=== PATIENT | female | born 1990 | race Caucasian/White ===

== ENCOUNTER 2016-06-26 08:38 | Emergency (ER) | payer MEDICAID, OTHER ==
[~2016-06-26] VITALS: Ht 162.6 cm; Wt 57.0 kg
[~2016-06-26 08:38] MED LIST: POLY10O LEFT EYE
[2016-06-26 08:40] VITALS: BP 142/87; PULSE 84; RESP 16; TEMP 98.7; O2SAT 100
[2016-06-26] MEDS ORDERED: PENI500T PO (09:47)
--- NOTE | 2016-06-26 09:49 | PD ---
HPI Chief Complaint: ENT Complaint Time Seen by Provider: 09:16 Travel History International Travel<30 days: No Contact w/Intl Traveler<30days: No Traveled to known affect area: No History of Present Illness HPI She complains of sore throat. She also has swollen glands. She does not have runny nose or congestion or cough. Symptoms severity is moderate. Duration 3 days PFSH Past Medical History Cancer: No Cardiovascular Problems: No Diabetes: No Diminished Hearing: No Endocrine: No Genitourinary: Yes (KIDNEY STONE) Hepatitis: No Hiatal Hernia: No Immune Disorder: No Kidney Stones: Yes Musculoskeletal: No Neurologic: No Psychiatric: No Reproductive: No Respiratory: No Immunizations Current: Yes Thyroid Disease: No ?: Not LMP: May 22, 2016, IUD insitu : 3 Para: 2 : 1 Past Surgical History Abdominal Surgery: No AICD: No Cardiac Surgery: No Section: Yes Ear Surgery: No Endocrine Surgery: No Eye Surgery: No Genitourinary Surgery: Yes (RT KIDNEY STENT/LITHOTRIPSY) Gynecologic Surgery: Yes (C SECTIONS X2) Joint Replacement: No Oral Surgery: No Pacemaker: No Thoracic Surgery: No Other Surgery: Yes Social History Alcohol Use: No Tobacco Use: Yes (4 CIGS PER DAY) Substance Use: Yes (marijuana) Allergies-Medications (Allergen,Severity, Reaction): Coded Allergies: No Known Allergies (Verified , 01/16/16) Reported Meds & Prescriptions Reported Meds & Active Scripts Active No Active Prescriptions or Reported Medications Review of Systems General / Constitutional: No: Fever Eyes: No: Drainage HENT: Positive: Sore Throat Physical Exam Narrative NECK: Symmetrical appearance, midline trachea. No mass or crepitus. Thyroid without enlargement, tenderness, or mass. Has prominent submandibular lymphadenopathy that is tender SKIN: Focused skin assessment reveals no rash or ulcers. Skin is warm and dry. Palpation shows no induration or nodules. TMs normal Throat: Erythematous throughout but no exudate. Uvula midline Psych: Normal mood and affect. Normal insight and judgment. Data Data Last Documented VS Vital Signs Date Time Temp Pulse Resp B/P Pulse Ox O2 Delivery O2 Flow Rate FiO2 06/26/16 09:12 15 06/26/16 08:40 98.7 84 142/87 100 Room Air MDM Medical Decision Making Medical Screen Exam Complete: Yes Emergency Medical Condition: Yes Medical Record Reviewed: Yes Differential Diagnosis Pharyngitis, URI, sinusitis Narrative Course I have reviewed the patient's electronic medical record. Frequent visitor to the ER for minor complaints Presentation seems most consistent with an acute strep pharyngitis. 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 Exam of the throat is consistent with that and she lacks viral symptoms. One week of penicillin prescribed Gradual resolution is expected Diagnosis Primary Impression: Pharyngitis, acute Qualified Code: J02.9 - Acute pharyngitis, unspecified etiology Additional Instructions: The patient was advised to follow up with their physician and return if they worsen. Med/Other Pt SpecificInfo: Prescription(s) given Scripts Penicillin V Potassium 500 Mg [id number] Mg PO Q6H #28 TAB Ref 0 Prov:Jatinder Johnson MD 06/26/16 Disposition: 01 DISCHARGE HOME Condition: Stable Jatinder Johnson MD Jun 26, 2016 09:49
[2016-06-27] MEDS ORDERED: CIPR250T52 PO (10:56)
[2016-06-27] MEDS ORDERED: ACET500T36 PO (10:57)
== END 2016-06-26 10:04 | disposition home or self-care (01) ==
LOC: NEPD 08:38
DX: J02.9 Acute pharyngitis, unspecified (principal); Z72.0 Tobacco use; F17.210 Nicotine dependence, cigarettes, uncomplicated
CPT/HCPCS: 99283

== ENCOUNTER 2016-06-27 07:59 | Emergency (ER) | payer MEDICAID, OTHER ==
[~2016-06-27 07:59] MED LIST changes: +PENI500T PO; -POLY10O LEFT EYE
[2016-06-27 08:00] VITALS: BP 123/95; PULSE 61; RESP 18; TEMP 98.2; O2SAT 99
[2016-06-27 08:26] VITALS: RESP 17; O2SAT 99
[2016-06-27] MEDS ORDERED: SODIUM CHLORIDE 0.9% FLUSH 10 ML FLUSH IV FLUSH PRN (08:30)
[2016-06-27] MEDS ORDERED: KETOROLAC TROMETHAMINE 30 MG/ML (IVP) VIAL IV PUSH ONE (08:30)
--- NOTE | 2016-06-27 08:33 | PD ---
HPI Chief Complaint: Abdominal Pain Time Seen by Provider: 08:08 Travel History International Travel<30 days: No Contact w/Intl Traveler<30days: No Traveled to known affect area: No History of Present Illness HPI 26yo F with PMH of nephrolithiasis s/p lithotripsy presents to the ED with c/o right sided right lower back pain that radiates to right abdomen that started today. States the pain is sharp, waxes and wanes in intensity. States it is not as bad as when she had kidney stones. Denies any fever, n/v, chest pain, sob, vaginal discharge. Pt denies dysuria but feels pressure after urinating. Had nonbloody diarrhea today. PSH includes . Pt has IUD. Pt was here yesterday for pharyngitis. PFSH Past Medical History Cancer: No Cardiovascular Problems: No Diabetes: No Diminished Hearing: No Endocrine: No Genitourinary: Yes (KIDNEY STONE) Hepatitis: No Hiatal Hernia: No Immune Disorder: No Kidney Stones: Yes Musculoskeletal: No Neurologic: No Psychiatric: No Reproductive: No Respiratory: No Immunizations Current: Yes Thyroid Disease: No ?: Not LMP: 06/06/16 : 3 Para: 2 : 1 Past Surgical History Abdominal Surgery: No AICD: No Cardiac Surgery: No Section: Yes Ear Surgery: No Endocrine Surgery: No Eye Surgery: No Genitourinary Surgery: Yes (RT KIDNEY STENT/LITHOTRIPSY) Gynecologic Surgery: Yes (C SECTIONS X2) Joint Replacement: No Oral Surgery: No Pacemaker: No Thoracic Surgery: No Other Surgery: Yes Social History Alcohol Use: No Tobacco Use: Yes (4 CIGS PER DAY) Substance Use: Yes (marijuana) Allergies-Medications (Allergen,Severity, Reaction): Coded Allergies: No Known Allergies (Verified , 06/27/16) Reported Meds & Prescriptions Reported Meds & Active Scripts Active Penicillin V Potassium 500 Mg Tab 500 Mg PO Q6H Review of Systems Except as stated in HPI: all other systems reviewed are Neg Physical Exam Narrative GENERAL: 26yo F in moderate distress. SKIN: Focused skin assessment warm/dry. HEAD: Atraumatic. Normocephalic. EYES: Pupils equal and round. No scleral icterus. No injection or drainage. ENT: No nasal bleeding or discharge. Mucous membranes pink and moist. NECK: Trachea midline. No JVD. CARDIOVASCULAR: Regular rate and rhythm. No murmur appreciated. RESPIRATORY: No accessory muscle use. Clear to auscultation. Breath sounds equal bilaterally. GASTROINTESTINAL: Abdomen soft, +TTP epigastric, RUQ, RLQ and right flank. + TTP suprapubic region. No rebound tenderness or guarding. BACK: No CVA tenderness but mild ttp right paraspinal L4-L5. No midline ttp. MUSCULOSKELETAL: No obvious deformities. No clubbing. No cyanosis. No edema. NEUROLOGICAL: Awake and alert. No obvious cranial nerve deficits. Motor grossly within normal limits. Normal speech. PSYCHIATRIC: Appropriate mood and affect; insight and judgment normal. Data Data Last Documented VS Vital Signs Date Time Temp Pulse Resp B/P Pulse Ox O2 Delivery O2 Flow Rate FiO2 06/27/16 09:30 64 16 126/66 99 Room Air 06/27/16 08:00 98.2 Orders Complete Blood Count With Diff (06/27/16 08:22) Comprehensive Metabolic Panel (06/27/16 08:22) Lipase (06/27/16 08:22) Prothrombin Time / Inr (Pt) (06/27/16 08:22) Act Partial Throm Time (Ptt) (06/27/16 08:22) Urinalysis - C+S If Indicated (06/27/16 08:22) Ct Abd/Pel W Iv Contrast(Rout) (06/27/16 08:22) Iv Access Insert/Monitor (06/27/16 08:22) Ecg Monitoring (06/27/16 08:22) Oximetry (06/27/16 08:22) Sodium Chloride 0.9% Flush (Ns Flush) (06/27/16 08:30) Ed Urine Pregnancytest Poc (06/27/16 08:22) Ketorolac Inj (Toradol Inj) (06/27/16 08:30) Iohexol 350 Inj (Omnipaque 350 Inj) (06/27/16 09:04) Urine Culture (06/27/16 08:30) Labs Laboratory Tests Test 06/27/16 08:30 White Blood Count 7.4 TH/MM3 Red Blood Count 4.77 MIL/MM3 Hemoglobin 13.4 GM/DL Hematocrit 38.4 % Mean Corpuscular Volume 80.6 FL Mean Corpuscular Hemoglobin 28.1 PG Mean Corpuscular Hemoglobin 34.9 % Concent Red Cell Distribution Width 13.1 % Platelet Count 245 TH/MM3 Mean Platelet Volume 8.8 FL Neutrophils (%) (Auto) 70.7 % Lymphocytes (%) (Auto) 18.7 % Monocytes (%) (Auto) 8.8 % Eosinophils (%) (Auto) 1.2 % Basophils (%) (Auto) 0.6 % Neutrophils # (Auto) 5.2 TH/MM3 Lymphocytes # (Auto) 1.4 TH/MM3 Monocytes # (Auto) 0.7 TH/MM3 Eosinophils # (Auto) 0.1 TH/MM3 Basophils # (Auto) 0.0 TH/MM3 CBC Comment DIFF FINAL Differential Comment Prothrombin Time 10.5 SEC Prothromb Time International 1.0 RATIO Ratio Activated Partial 31.6 SEC Thromboplast Time Urine Color BROWN Urine Turbidity TURBID Urine pH 6.0 Urine Specific [place] 1.031 Urine Protein 30 mg/dL Urine Glucose (UA) NEG mg/dL Urine Ketones 10 mg/dL Urine Occult Blood SMALL Urine Nitrite NEG Urine Bilirubin NEG Urine Urobilinogen 2.0 MG/DL Urine Leukocyte Esterase MOD Urine RBC 50 /hpf Urine WBC /hpf Urine WBC Clumps FEW Urine Amorphous Sediment SMALL Urine Mucus MANY /lpf Microscopic Urinalysis Comment CULTURE INDICATED Sodium Level 138 MEQ/L Potassium Level 3.4 MEQ/L Chloride Level 104 MEQ/L Carbon Dioxide Level 23.5 MEQ/L Anion Gap 11 MEQ/L Blood Urea Nitrogen 12 MG/DL Creatinine 0.84 MG/DL Estimat Glomerular Filtration 81 ML/MIN Rate Random Glucose 89 MG/DL Calcium Level 9.5 MG/DL Total Bilirubin 0.4 MG/DL Aspartate Amino Transf 17 U/L (AST/SGOT) Alanine Aminotransferase 19 U/L (ALT/SGPT) Alkaline Phosphatase 58 U/L Total Protein 8.4 GM/DL Albumin 4.0 GM/DL Lipase 97 U/L [facility] Medical Decision Making Medical Screen Exam Complete: Yes Emergency Medical Condition: Yes Differential Diagnosis Nephrolithiasis vs. appendicitis vs. colitis vs. pyelonephritis Narrative Course 26yo F with nephrolithiasis here with right sided pain. Labs reviewed, no leukocytosis. K: 3.4, pt is tolerating PO. Lipase normal. Normal LFTs. Creatinine normal. UA showed moderate leukocyte. RBC 50. Likely secondary to nephrolithiasis. Urine negative. CTa/p showed minimal free fluid within cul de sac. No acute obstructive uropathy. Scattered bilateral tiny renal cysts. Pt given toradol 30mg IV and pain has resolved. Pt reevaluated at bedside and states abdominal and back pain has resolved. Pt is well appearing and tolerating PO. Will give antibiotics to cover UTI. Return precautions given. Diagnosis Primary Impression: UTI (urinary tract infection) Qualified Code: N39.0 - Urinary tract infection with hematuria, site unspecified Patient Instructions: General Instructions Departure Forms: Tests/Procedures Additional Instructions: Please follow up with primary care as outpatient. Return to the ED if symptoms worsen. Med/Other Pt SpecificInfo: Prescription(s) given Scripts Acetaminophen (Acetaminophen Extra Strength)500 Mg Nan083 Mg PO Q6H PRN (PAIN SCALE 1 TO 4) #20 TAB Ref 0 Prov:Skye Ling DO 06/27/16 Ciprofloxacin (Cipro)250 Mg [id number] Mg PO BID 3 Days Ref 0 Prov:Skye Ling DO 06/27/16 Skye Ling DO Jun 27, 2016 08:32
[2016-06-27] MEDS ORDERED: IOHEXOL 350 MG/ML 10 ML VIAL (for RAD DIAG) IV ONE (09:04)
[2016-06-27 09:12] LABS: AUTOMATED NEUTROPHIL # 5.2 TH/MM3 (1.8-7.7); BASOPHIL % 0.6 % (0.0-2.0); EOSINOPHIL # 0.1 TH/MM3 (0-0.4); EOSINOPHIL % 1.2 % (0.0-4.0); HEMATOCRIT 38.4 % (35.0-46.0); HEMO FLAGS DIFF FINAL; LYMPH % 18.7 % (9.0-44.0); LYMPHOCYTE # 1.4 TH/MM3 (1.0-4.8); MEAN CELL VOLUME 80.6 FL (80.0-100.0); MEAN CORPUSCULAR HEMOGLOBIN 28.1 PG (27.0-34.0); MEAN CORPUSCULAR HGB CONC 34.9 % (32.0-36.0); MONO % 8.8 % (0.0-8.0); NEUT % 70.7 % (16.0-70.0); PLATELET COUNT 245 TH/MM3 (150-450); RED BLOOD COUNT 4.77 MIL/MM3 (4.00-5.30); RED CELL DISTRIBUTION WIDTH 13.1 % (11.6-17.2); WHITE BLOOD COUNT 7.4 TH/MM3 (4.0-11.0)
[2016-06-27 09:24] LABS: APTT (PATIENT) 31.6 SEC (24.3-30.1); PROTHROMBIN TIME - PATIENT 10.5 SEC (9.8-11.6)
[2016-06-27 09:30] VITALS: BP 126/66; PULSE 64; RESP 16; O2SAT 99
--- NOTE | 2016-06-27 09:31 | RADRPT ---
EXAM DATE/TIME: 06/27/2016 08:53 [facility] COMPARISON: CT ABDOMEN & PELVIS W/O CONTRAST, November 20, 2014, 8:02. INDICATIONS : Right side abdominal pain. IV CONTRAST: 97 cc Omnipaque 350 (iohexol) IV ORAL CONTRAST: No oral contrast ingested. RADIATION DOSE: 9.96 CTDIvol (mGy) MEDICAL HISTORY : Renal calculi. SURGICAL HISTORY : None. ENCOUNTER: Initial ACUITY: 1 day PAIN SCALE: 5/10 LOCATION: Right abdomen TECHNIQUE: Volumetric scanning of the abdomen and pelvis was performed. Using automated exposure control and ad justment of the mA and/or kV according to patient size, radiation dose was kept as low as reasonably achievable to obtain optimal diagnostic quality images. FINDINGS: there is no acute obstructive uropathy. There is evidence of scattered tiny renal cysts bilaterally with the largest on the left measuring 9 mm. The liver, spleen, pancreas, gallbladder and adrenal gl ands are unremarkable. The abdominal aorta and superior vena cava are unremarkable. There is no per iaortic hemorrhage. No mesenteric lymphadenopathy. No ascites is noted. An intrauterine device is a gain noted and appears to be located in the lower uterine segment but unchanged in position compared to the previous examination in November,. There is minimal free fluid within the cul-de-sac. No bowel obstruction is noted. The visualized lung bases are clear. The bony structures are unremar kable. CONCLUSION: 1. Minimal free fluid within the cul-de-sac. 2. No acute obstructive uropathy. 3. Scattered tiny bilateral renal cysts. Dagoberto Downing MD on June 27, 2016 at 9:11 Board Certified Radiologist. This report was verified electronically.
[2016-06-27 09:39] LABS: BLOOD, URINE SMALL (NEG); COMMENT (UR) CULTURE INDICATED; CULTURE IF INDICATED CULTURE INDICATED; GLUCOSE,URINE NEG (NEG); KETONE, URINE 10 mg/dL (NEG); MUCUS URINE MANY /lpf (OCC); NITRITE,URINE NEG (NEG)
[2016-06-27 09:41] LABS: ANION GAP 11 MEQ/L (5-15); AST (GOT) 17 U/L (15-37); BICARBONATE 23.5 MEQ/L (21.0-32.0); BLOOD UREA NITROGEN 12 MG/DL (7-18); CHLORIDE 104 MEQ/L (98-107); GLOMERULAR FILTRATION RATE 81 ML/MIN (>89); POTASSIUM 3.4 MEQ/L (3.5-5.1); SODIUM (NA) 138 MEQ/L (136-145)
[2016-06-27 09:43] LABS: URINE COLOR BROWN (YELLW/STRAW)
[2016-06-27 09:45] LABS: ALKALINE PHOSPHATASE 58 U/L (45-117); ALT (GPT) 19 U/L (10-53); TOTAL BILIRUBIN ADULT 0.4 MG/DL (0.2-1.0)
[2016-06-27] MEDS ORDERED: CIPR250T52 PO (10:56)
[2016-06-27] MEDS ORDERED: ACET500T36 PO (10:57)
[2016-06-27 11:02] VITALS: BP 130/77; TEMP 97.8
== END 2016-06-27 11:02 | disposition home or self-care (01) ==
LOC: NEPC 07:59
DX: N39.0 Urinary tract infection, site not specified (principal); Z72.0 Tobacco use; F12.90 Cannabis use, unspecified, uncomplicated; B96.89 Other specified bacterial agents as the cause of diseases classified elsewhere
CPT/HCPCS: 74177; 80053; 81001; 83690; 84703; 85025; 85610; 85730; 87086; 96374; 99284; J1885; Q9967

== ENCOUNTER 2016-06-28 01:22 | Inpatient (IN) | payer MEDICAID, OTHER ==
[2016-06-28] VITALS (10 sets, daily range): BP systolic 100–117; BP diastolic 56–81; PULSE 75–101; RESP 18–22; TEMP 98.9–101.9; O2SAT 97–100
[~2016-06-28] VITALS: Ht 172.7 cm; Wt 57.0 kg
[~2016-06-28 01:22] MED LIST changes: +ACET500T36 PO; +CIPR250T52 PO; +POLY10O LEFT EYE
[2016-06-28] MEDS ORDERED: SODIUM CHLOR 0.9% 1000 ML INJ 1,000 ML IV SCH ×2 (01:40)
[2016-06-28] MEDS ORDERED: MORPHINE SULFATE 4 MG/ML INJ IV PUSH ONE (01:45)
[2016-06-28] MEDS ORDERED: ONDANSETRON HCL 4 MG/2 ML VIAL IVP ONE (01:45)
[2016-06-28] MEDS ORDERED: PANTOPRAZOLE SODIUM 40 MG VIAL IVP ONE (01:45)
--- NOTE | 2016-06-28 01:46 | PD ---
HPI Chief Complaint: GI Complaint Time Seen by Provider: 01:32 Travel History International Travel<30 days: No Contact w/Intl Traveler<30days: No Traveled to known affect area: No History of Present Illness HPI 26-year-old female complains of right flank pain, low abdominal pain and nausea vomiting. Patient was seen in emergency room yesterday with diagnosis of UTI. Patient was given prescription for Cipro. Patient states that she has increased abdominal pain, right flank pain today. Patient states that she started her menstruation. This morning also. Patient states that she has intermittent fever chills at home. Patient states that she has urinary frequency but no dysuria. Patient states that the pain cramping pain and sharp pain severe pain localized to lower abdomen the right flank area. Patient denies any pain radiation. On a scale of 1-10 the pain is a 10. PFSH Past Medical History Cancer: No Cardiovascular Problems: No Diabetes: No Diminished Hearing: No Endocrine: No Gastrointestinal Disorders: No Genitourinary: Yes (KIDNEY STONE) Hepatitis: No Hiatal Hernia: No Hypertension: No Immune Disorder: No Kidney Stones: Yes Musculoskeletal: No Neurologic: No Psychiatric: No Reproductive: No Respiratory: No Immunizations Current: Yes Thyroid Disease: No ?: Not LMP: 06/28/16 : 3 Para: 2 : 1 Past Surgical History Abdominal Surgery: No AICD: No Cardiac Surgery: No Section: Yes Ear Surgery: No Endocrine Surgery: No Eye Surgery: No Genitourinary Surgery: Yes (RT KIDNEY STENT/LITHOTRIPSY) Gynecologic Surgery: Yes (C SECTIONS X2) Joint Replacement: No Neurologic Surgery: No Oral Surgery: No Pacemaker: No Thoracic Surgery: No Other Surgery: Yes Social History Alcohol Use: No Tobacco Use: Yes (4 CIGS PER DAY) Substance Use: Yes (marijuana) Allergies-Medications (Allergen,Severity, Reaction): Coded Allergies: No Known Allergies (Verified , 06/28/16) Reported Meds & Prescriptions Reported Meds & Active Scripts Active Acetaminophen Extra Strength (Acetaminophen) 500 Mg Tab 500 Mg PO Q6H PRN Cipro (Ciprofloxacin HCl) 250 Mg Tab 250 Mg PO BID 3 Days Penicillin V Potassium 500 Mg Tab 500 Mg PO Q6H Review of Systems General / Constitutional: Positive: Fever, Chills Eyes: No: Visual changes HENT: No: Headaches Cardiovascular: No: Chest Pain or Discomfort Respiratory: No: Shortness of Breath Gastrointestinal: Positive: Abdominal Pain Genitourinary: Positive: Frequency, No: Dysuria Musculoskeletal: No: Pain Skin: No Rash Neurologic: No: Weakness Psychiatric: No: Depression Endocrine: No: Polydipsia Hematologic/Lymphatic: No: Easy Bruising Physical Exam Narrative GENERAL: Well-nourished, well-developed patient. SKIN: Focused skin assessment warm/dry. HEAD: Normocephalic. EYES: No scleral icterus. No injection or drainage. NECK: Supple, trachea midline. No JVD or lymphadenopathy. CARDIOVASCULAR: Regular rate and rhythm without murmurs, gallops, or rubs. RESPIRATORY: Breath sounds equal bilaterally. No accessory muscle use. GASTROINTESTINAL: Abdomen soft, nondistended. Patient has moderate tenderness on palpation lower abdomen. No rebound tenderness. No mass. MUSCULOSKELETAL: No cyanosis, or edema. BACK: Patient has positive right CVA tenderness. Neurologic exam normal. Data Data Last Documented VS Vital Signs Date Time Temp Pulse Resp B/P Pulse Ox O2 Delivery O2 Flow Rate FiO2 06/28/16 01:24 100.0 88 18 116/81 99 Room Air Orders Beta Hcg (Quant/Titer) (06/28/16 01:40) Complete Blood Count With Diff (06/28/16 01:40) Comprehensive Metabolic Panel (06/28/16 01:40) Lipase (06/28/16 01:40) Prothrombin Time / Inr (Pt) (06/28/16 01:40) Act Partial Throm Time (Ptt) (06/28/16 01:40) Urinalysis - C+S If Indicated (06/28/16 01:40) Iv Access Insert/Monitor (06/28/16 01:40) Ecg Monitoring (06/28/16 01:40) Oximetry (06/28/16 01:40) Morphine Inj (Morphine Inj) (06/28/16 01:45) Ondansetron Inj (Zofran Inj) (06/28/16 01:45) Pantoprazole Inj (Protonix Inj) (06/28/16 01:45) Sodium Chlor 0.9% 1000 Ml Inj (Ns 1000 M (06/28/16 01:40) Sodium Chlor 0.9% 1000 Ml Inj (Ns 1000 M (06/28/16 01:40) Blood Culture (06/28/16 01:40) Ceftriaxone Inj (Rocephin Inj) (06/28/16 02:00) Metoclopramide Inj (Reglan Inj) (06/28/16 02:45) Diphenhydramine Inj (Benadryl Inj) (06/28/16 02:45) Urine Culture (06/28/16 02:25) Labs Laboratory Tests Test 06/28/16 02:25 White Blood Count 17.7 TH/MM3 Red Blood Count 4.79 MIL/MM3 Hemoglobin 13.3 GM/DL Hematocrit 38.6 % Mean Corpuscular Volume 80.7 FL Mean Corpuscular Hemoglobin 27.8 PG Mean Corpuscular Hemoglobin 34.5 % Concent Red Cell Distribution Width 12.9 % Platelet Count 247 TH/MM3 Mean Platelet Volume 9.0 FL Neutrophils (%) (Auto) 85.2 % Lymphocytes (%) (Auto) 8.5 % Monocytes (%) (Auto) 5.9 % Eosinophils (%) (Auto) 0.2 % Basophils (%) (Auto) 0.2 % Neutrophils # (Auto) 15.1 TH/MM3 Lymphocytes # (Auto) 1.5 TH/MM3 Monocytes # (Auto) 1.0 TH/MM3 Eosinophils # (Auto) 0.0 TH/MM3 Basophils # (Auto) 0.0 TH/MM3 CBC Comment DIFF FINAL Differential Comment Urine Color DARK-BROWN Urine Turbidity HAZY Urine pH 6.0 Urine Specific [place] 1.042 Urine Protein 100 mg/dL Urine Glucose (UA) NEG mg/dL Urine Ketones 150 mg/dL Urine Occult Blood MOD Urine Nitrite NEG Urine Bilirubin NEG Urine Urobilinogen 2.0 MG/DL Urine Leukocyte Esterase LARGE Urine RBC /hpf Urine WBC /hpf Urine Squamous Epithelial 4 /hpf Cells Urine Mucus MANY /lpf Microscopic Urinalysis Comment CULTURE INDICATED Sodium Level 136 MEQ/L Potassium Level 3.1 MEQ/L Chloride Level 102 MEQ/L Carbon Dioxide Level 21.0 MEQ/L Anion Gap 13 MEQ/L Blood Urea Nitrogen 12 MG/DL Creatinine 0.88 MG/DL Estimat Glomerular Filtration 77 ML/MIN Rate Random Glucose 120 MG/DL Calcium Level 9.4 MG/DL Aspartate Amino Transf 16 U/L (AST/SGOT) Alanine Aminotransferase 16 U/L (ALT/SGPT) Albumin 4.4 GM/DL Lipase 63 U/L [facility] Medical Decision Making Medical Screen Exam Complete: Yes Emergency Medical Condition: Yes Interpretation(s) 3:28 AM. CBC WBC 17.7. 85 neutrophil. Potassium 3.1. UA positive for WBC, RBC and bacteria. Differential Diagnosis Differential diagnosis including pyelonephritis, nephrolithiasis, gastroenteritis, dysmenorrhea, PID, ectopic , threatened AB. Narrative Course 26-year-old female with low abdominal pain and right flank pain, nausea vomiting. Patient was seen here yesterday for UTI. Normal saline solution 1 L IV bolus. Morphine 2 mg IV. Zofran 4 mg IV. Rocephin 1 g IV. Reglan 10 mg IV. Benadryl 50 mg IV. Diagnosis Primary Impression: Pyelonephritis Additional Impressions: Persistent vomiting Failure of outpatient treatment Admitting Information Admitting Physician Requests: Admit Arturo Hdz MD Jun 28, 2016 01:46
[2016-06-28] MEDS ORDERED: cefTRIAXone INJ 1,000 MG in SODIUM CHLORIDE 0.9% INJ 100 ML IV ONE (02:00)
[2016-06-28] MEDS ORDERED: diphenhydrAMINE HCL 50 MG/ML VIAL IV PUSH ONE (02:45)
[2016-06-28] MEDS ORDERED: METOCLOPRAMIDE HCL 10 MG/2 ML VIAL IV PUSH ONE (02:45)
[2016-06-28 03:07] LABS: AUTOMATED NEUTROPHIL # 15.1 TH/MM3 (1.8-7.7); BASOPHIL % 0.2 % (0.0-2.0); EOSINOPHIL % 0.2 % (0.0-4.0); HEMATOCRIT 38.6 % (35.0-46.0); HEMO FLAGS DIFF FINAL; LYMPH % 8.5 % (9.0-44.0); LYMPHOCYTE # 1.5 TH/MM3 (1.0-4.8); MEAN CELL VOLUME 80.7 FL (80.0-100.0); MEAN CORPUSCULAR HEMOGLOBIN 27.8 PG (27.0-34.0); MEAN CORPUSCULAR HGB CONC 34.5 % (32.0-36.0); MONO % 5.9 % (0.0-8.0); NEUT % 85.2 % (16.0-70.0); PLATELET COUNT 247 TH/MM3 (150-450); RED BLOOD COUNT 4.79 MIL/MM3 (4.00-5.30); RED CELL DISTRIBUTION WIDTH 12.9 % (11.6-17.2); WHITE BLOOD COUNT 17.7 TH/MM3 (4.0-11.0)
[2016-06-28 03:08] LABS: BLOOD, URINE MOD (NEG); COMMENT (UR) CULTURE INDICATED; CULTURE IF INDICATED CULTURE INDICATED; GLUCOSE,URINE NEG (NEG); KETONE, URINE 150 mg/dL (NEG); MUCUS URINE MANY /lpf (OCC); NITRITE,URINE NEG (NEG); SQUAMOUS EPITHELIAL CELL URINE 4 /hpf (0-5); URINE COLOR DARK-BROWN (YELLW/STRAW)
[2016-06-28 03:25] LABS: ALT (GPT) 16 U/L (10-53); ANION GAP 13 MEQ/L (5-15); AST (GOT) 16 U/L (15-37); BLOOD UREA NITROGEN 12 MG/DL (7-18); CHLORIDE 102 MEQ/L (98-107); GLOMERULAR FILTRATION RATE 77 ML/MIN (>89); POTASSIUM 3.1 MEQ/L (3.5-5.1); SODIUM (NA) 136 MEQ/L (136-145)
[2016-06-28 03:28] LABS: APTT (PATIENT) 34.1 SEC (24.3-30.1); PROTHROMBIN TIME - PATIENT 11.4 SEC (9.8-11.6)
[2016-06-28 03:29] LABS: ALKALINE PHOSPHATASE 72 U/L (45-117); BETA HCG QUANT LESS THAN 1 MIU/ML (0-5)
[2016-06-28] MEDS ORDERED: BISACODYL 10 MG SUPP RECTAL PRN (03:45)
[2016-06-28] MEDS ORDERED: PROCHLORPERAZINE INJ 10 MG/2 ML VIAL IV PUSH PRN (03:45)
[2016-06-28] MEDS ORDERED: SODIUM CHLORIDE 0.9% FLUSH 10 ML FLUSH IV FLUSH PRN (03:45)
[2016-06-28] MEDS ORDERED: ACETAMINOPHEN 325 MG TAB PO PRN (03:45)
[2016-06-28] MEDS ORDERED: MORPHINE SULFATE 4 MG/ML INJ IV PRN ×2 (03:45→18:45)
[2016-06-28] MEDS ORDERED: POTASSIUM CHLOR 20 MEQ PREMIX 100 ML IV ONE (04:00)
--- NOTE | 2016-06-28 04:05 | HHI.HP ---
HPI Service [facility] Primary Care Physician No Primary Care Physician Admission Diagnosis pyelonephritis. Intractable vomiting. Failure of outpatient treatm Diagnoses: (1) Pyelonephritis Diagnosis: Principal (2) Failure of outpatient treatment Diagnosis: Principal (3) Dehydration Diagnosis: Principal (4) Hypokalemia Diagnosis: Principal (5) Intractable nausea and vomiting Diagnosis: Principal (6) Tobacco abuse Diagnosis: Principal Travel History International Travel<30 Days: No Contact w/Intl Traveler <30 Da: No Traveled to Known Affected Are: No History of Present Illness This is a 26-year-old female with PMH Nephrolithiasis s/p Stent/Lithotripsy of present ER with complaints of right-sided flank pain, nausea and vomiting x2 days. Seen in ER on 06/26/16 for c/o sore throat, diagnosed w/ Acute Pharyngitis and d/c'd w/ PCN 500mg po q6h. Presented to ER again on 06/27/16 w/ c/o right-sided flank pain and nausea/vomiting, found to have UTI and d/c'd w/ Cipro 250mg po bid x3 days. Reports ongoing nausea/vomiting, unable to take medications, also notes subjective fever/chills at home. On arrival, Temp 100.0. BP 116/81, HR 88, O2 sat 99% on RA. WBC 17.7, previously 7.4 on . K+ 3.1. GFR 77. U/a w/ worsening UTI. CT Abd/Pelvis 06/27/16 w/ minimal free fluid in cul-de-sac, no obstructive uropathy. S/p Blood/Urine Cultures, Rocephin IV in ER. Review of Systems Except as stated in HPI: all other systems reviewed are Neg ROS: 14 point review of systems otherwise negative. Past Family Social History Past Medical History PMH: Nephrolithiasis s/p Stent/Lithotripsy Past Surgical History PAST SURGICAL HISTORY: Allergies: Coded Allergies: No Known Allergies (Verified , 06/28/16) Family History PAST FAMILY HISTORY: Reviewed. No h/o DM or CAD Social History PAST SOCIAL HISTORY: Negative for alcohol. Smokes 4-5 cigarettes per day. + Marijuana. Physical Exam Vital Signs Vital Signs Date Time Temp Pulse Resp B/P Pulse Ox O2 Delivery O2 Flow Rate FiO2 06/28/16 03:48 83 18 112/56 98 Room Air 06/28/16 01:24 100.0 88 18 116/81 99 Room Air Physical Exam PE: GENERAL: Young female in no acute distress. HEENT: PERRLA, EOMI. No scleral icterus or conjunctival pallor. No lid lag or facial droop. CARDIOVASCULAR: Regular rate and rhythm. No obvious murmurs to auscultation. No chest tenderness to palpation. RESPIRATORY: No obvious rhonchi or wheezing. Clear to auscultation. Breath sounds equal bilaterally. GASTROINTESTINAL: Abdomen soft, +mild generalized tenderness to palpation, + right flank tenderness, nondistended. BS normal. MUSCULOSKELETAL: Extremities without clubbing, cyanosis, or edema. No obvious deformities. NEUROLOGICAL: Awake, alert and oriented x4. No focal neurologic deficits. Moving both upper and lower extremities spontaneously. Laboratory Laboratory Tests Test 06/28/16 02:25 White Blood Count 17.7 Red Blood Count 4.79 Hemoglobin 13.3 Hematocrit 38.6 Mean Corpuscular Volume 80.7 Mean Corpuscular Hemoglobin 27.8 Mean Corpuscular Hemoglobin 34.5 Concent Red Cell Distribution Width 12.9 Platelet Count 247 Mean Platelet Volume 9.0 Neutrophils (%) (Auto) 85.2 Lymphocytes (%) (Auto) 8.5 Monocytes (%) (Auto) 5.9 Eosinophils (%) (Auto) 0.2 Basophils (%) (Auto) 0.2 Neutrophils # (Auto) 15.1 Lymphocytes # (Auto) 1.5 Monocytes # (Auto) 1.0 Eosinophils # (Auto) 0.0 Basophils # (Auto) 0.0 CBC Comment DIFF FINAL Differential Comment Prothrombin Time 11.4 Prothromb Time International 1.0 Ratio Activated Partial 34.1 Thromboplast Time Urine Color DARK-BROWN Urine Turbidity HAZY Urine pH 6.0 Urine Specific [place] 1.042 Urine Protein 100 Urine Glucose (UA) NEG Urine Ketones 150 Urine Occult Blood MOD Urine Nitrite NEG Urine Bilirubin NEG Urine Urobilinogen 2.0 Urine Leukocyte Esterase LARGE Urine RBC Urine WBC Urine Squamous Epithelial 4 Cells Urine Mucus MANY Microscopic Urinalysis Comment CULTURE INDICATED Sodium Level 136 Potassium Level 3.1 Chloride Level 102 Carbon Dioxide Level 21.0 Anion Gap 13 Blood Urea Nitrogen 12 Creatinine 0.88 Estimat Glomerular Filtration 77 Rate Random Glucose 120 Calcium Level 9.4 Total Bilirubin 1.0 Aspartate Amino Transf 16 (AST/SGOT) Alanine Aminotransferase 16 (ALT/SGPT) Alkaline Phosphatase 72 Total Protein 9.0 Albumin 4.4 Lipase 63 Human Chorionic Gonadotropin, LESS THAN 1 Quant Date/Time Procedure Status Source Growth 06/28/16 02:30 Aerobic Blood Culture Received Blood Peripheral Pending 06/28/16 02:30 Anaerobic Blood Culture Received Blood Peripheral Pending 06/28/16 02:25 Urine Culture Received Urine Clean Catch Pending Result Diagram: 06/28/1622406/28/16224 Assessment and Plan Problem List: (1) Pyelonephritis ICD Code: N12 Status: Acute (2) Failure of outpatient treatment ICD Code: Z78.9 Status: Acute (3) Dehydration ICD Code: E86.0 Status: Acute (4) Hypokalemia ICD Code: E87.6 Status: Acute (5) Intractable nausea and vomiting ICD Code: R11.2 Status: Acute (6) Tobacco abuse ICD Code: Z72.0 Status: Acute Assessment and Plan A/P: 1. Pyelonephritis: right-sided flank pain, nausea/vomiting, presented to ER on 06/27/16, found to have UTI, CT Abd/Pelvis at that time w/ no acute findings, images reviewed by me. Persistent flank pain, U/a w/ worsening UTI, s/p Blood/ Urine Cultures and Rocephin IV in ER, will follow up cultures, continue IV Abx. Analgesics/antiemetics as needed. 2. Failure of Oupt Tx: seen in ER 06/27/16, prescribed Cipro 250mg bid x3 days , persistent/worsening UTI, continue w/ IV Abx. 3. Dehydration: GFR 77, BUN/Creatinine normal, will monitor, repeat labs in am , IVF. 4. Hypokalemia: K+ 3.1, replace and recheck. 5. Intractable Nausea/Vomiting: unable to tolerate PO, s/p Zofran, Reglan/ Benadryl in ER w/ eventual improvement. Will continue w/ antiemetics, diet as tolerated, IVF. 6. Tobacco Abuse: Pt counselled. Ativan/NicoDerm prn if needed. 7. DVT Prophylaxis: SCD/Teds. 8. Social work for DC planning as needed. 9. Case discussed at length with ER physician. Physician Certification 2 Midnight Certification Type: Admission for Inpatient Services Order for Inpatient Services The services are ordered in accordance with Medicare regulations or non- Medicare payer requirements, as applicable. In the case of services not specified as inpatient-only, they are appropriately provided as inpatient services in accordance with the 2-midnight benchmark. Estimated LOS (days): 2 days is the estimated time the patient will need to remain in the hospital, assuming treatment plan goals are met and no additional complications. Post-Hospital Plan: Not yet determined Daniela Garcia MD Jun 28, 2016 04:05
[2016-06-28] MEDS: SODIUM CHLOR 0.9% 1000 ML INJ 1,000 ML IV SCH ×2 (04:58→17:58)
[2016-06-28] MEDS: ACETAMINOPHEN/HYDROcodone 325 MG/5 MG TAB PO PRN ×3 (06:47→18:00)
[2016-06-28] MEDS: SODIUM CHLORIDE 0.9% FLUSH 10 ML FLUSH IV FLUSH SCH ×2 (08:11→20:42)
[2016-06-28] MEDS: ONDANSETRON HCL 4 MG/2 ML VIAL IVP PRN (14:28)
--- NOTE | 2016-06-28 16:23 | HHI.PR ---
Subjective Remarks "I have belly pain." Pt encountered laying abed. She reported pain extending from right flank, across her abdomen, stopping short of her left flank. Pt reported attempting to urinate and experienced "urethra pain." She said the pain reminded her of "when I had a kidney stone." Pt noted she experienced a brief period of nausea shortly after attempting to void. No other issues noted or reported. Objective Vitals Vital Signs Date Time Temp Pulse Resp B/P Pulse Ox O2 Delivery O2 Flow Rate FiO2 06/28/16 14:05 83 22 108/59 100 06/28/16 10:51 84 20 107/57 98 06/28/16 10:35 99.1 06/28/16 07:14 100.3 88 20 106/57 97 06/28/16 05:46 20 06/28/16 04:45 101.9 91 18 109/63 100 Room Air 06/28/16 03:48 83 18 112/56 98 Room Air 06/28/16 02:00 101 18 117/56 98 Room Air 06/28/16 01:24 100.0 88 18 116/81 99 Room Air I/O 06/27/16 06/27/16 06/27/16 06/28/16 06/28/16 06/28/16 07:00 15:00 23:00 07:00 15:00 23:00 Intake Total 500 ml Output Total 300 ml 100 ml Balance 200 ml -100 ml Intake Oral 200 ml IV Total 300 ml Output Urine Total 200 ml 100 ml Emesis 100 ml Bladder Scan Volume Amount 275 ml Result Diagram: 06/28/165 06/28/16224 Other Results Blood and urine cultures are pending. Imaging No imaging studies ordered within the past 24 hours. Objective Remarks GENERAL: SKIN: Warm and dry. HEAD: Normocephalic. EYES: No scleral icterus. No injection or drainage. NECK: Supple, trachea midline. No JVD or lymphadenopathy. CARDIOVASCULAR: Regular rate and rhythm without murmurs, gallops, or rubs. RESPIRATORY: Breath sounds equal bilaterally. No accessory muscle use. GASTROINTESTINAL: Abdomen soft, tender, nondistended with bowel sounds diminished in all quadrants. Pt did evidence right sided guarding during palpation. MUSCULOSKELETAL: No cyanosis, or edema. BACK: Nontender without obvious deformity. No CVA tenderness. Procedures None completed within the past 24 hours. Medications and IVs Current Medications Medications (Trade) Dose Ordered Sig/Claire Route Start Time Stop Time Status Last Admin Ceftriaxone Sodium 1000 mg/ Sodium Chloride 100 ml @ 200 mls/hr Q24H IV 06/29/16 06:00 (NS 1000 ml Inj) 1,000 ml @ 100 mls/hr Q10H IV 06/28/16 03:39 06/28/16 04:58 (NS Flush) 2 ml UNSCH PRN IV FLUSH 06/28/16 03:45 06/28/16 14:33 (NS Flush) 2 ml BID IV FLUSH 06/28/16 09:00 (Zofran Inj) 4 mg Q6H PRN IVP 06/28/16 03:45 06/28/16 14:28 (Dulcolax Supp) 10 mg DAILY PRN RECTAL 06/28/16 03:45 (Tylenol) 650 mg Q6H PRN PO 06/28/16 03:45 06/28/16 04:45 ([place] 5-325 Mg) 1 tab Q4H PRN PO 06/28/16 03:45 06/28/16 11:02 (Morphine Inj) 2 mg Q3H PRN IV 06/28/16 03:45 06/28/16 14:35 (Compazine Inj) 10 mg Q6H PRN IV PUSH 06/28/16 03:45 Urinary Catheter: No Vascular Central Line Catheter: No A/P Problem List: (1) Pyelonephritis ICD Code: N12 Status: Acute (2) Failure of outpatient treatment ICD Code: Z78.9 Status: Acute (3) Dehydration ICD Code: E86.0 Status: Acute (4) Hypokalemia ICD Code: E87.6 Status: Acute (5) Intractable nausea and vomiting ICD Code: R11.2 Status: Acute (6) Tobacco abuse ICD Code: Z72.0 Status: Acute Assessment and Plan Pyelonephritis -awaiting cultures -Antibiotics ongoing -treat pain or PRN basis. Failure of outpt treatment -Treating with Iv antibiotics. -Admitted to hospital. Dehydration -IV fluids ordered. -monitor status both clinically and with labs. Hypokalemia -Pt has received replacement potassium -labs to be checked in the morning Intractable Nausea and vomiting -Pt receiving antiemetics and is reporting improvement. -continue treatment. Tobacco abuse -admitting team has prescribed nicoderm and ativan as needed for withdrawal. DVT Prophylaxis: SCD/Teds. Elton Johns Jr. KAIT Jun 28, 2016 16:23
[2016-06-29 00:30] VITALS: BP 96/50; PULSE 78; RESP 20; TEMP 99.2; O2SAT 98
[2016-06-29 05:15] VITALS: BP 104/53; PULSE 81; RESP 20; TEMP 98.9; O2SAT 98
[2016-06-29] MEDS: cefTRIAXone INJ 1,000 MG in SODIUM CHLORIDE 0.9% INJ 100 ML IV SCH (06:08)
[2016-06-29] MEDS: SODIUM CHLOR 0.9% 1000 ML INJ 1,000 ML IV SCH ×3 (06:15→19:39)
[2016-06-29 06:40] LABS: AUTOMATED NEUTROPHIL # 12.1 TH/MM3 (1.8-7.7); BASOPHIL % 0.3 % (0.0-2.0); EOSINOPHIL # 0.1 TH/MM3 (0-0.4); EOSINOPHIL % 0.7 % (0.0-4.0); HEMATOCRIT 30.4 % (35.0-46.0); HEMO FLAGS DIFF FINAL; LYMPH % 6.7 % (9.0-44.0); LYMPHOCYTE # 0.9 TH/MM3 (1.0-4.8); MEAN CELL VOLUME 80.3 FL (80.0-100.0); MEAN CORPUSCULAR HEMOGLOBIN 28.5 PG (27.0-34.0); MEAN CORPUSCULAR HGB CONC 35.5 % (32.0-36.0); MONO % 5.1 % (0.0-8.0); NEUT % 87.2 % (16.0-70.0); PLATELET COUNT 210 TH/MM3 (150-450); RED BLOOD COUNT 3.79 MIL/MM3 (4.00-5.30); RED CELL DISTRIBUTION WIDTH 13.3 % (11.6-17.2); WHITE BLOOD COUNT 13.9 TH/MM3 (4.0-11.0)
[2016-06-29] MEDS: ONDANSETRON HCL 4 MG/2 ML VIAL IVP PRN (06:44)
[2016-06-29 07:26] LABS: ALKALINE PHOSPHATASE 67 U/L (45-117); ALT (GPT) 11 U/L (10-53); ANION GAP 8 MEQ/L (5-15); AST (GOT) 9 U/L (15-37); BICARBONATE 24.8 MEQ/L (21.0-32.0); BLOOD UREA NITROGEN 11 MG/DL (7-18); CHLORIDE 105 MEQ/L (98-107); GLOMERULAR FILTRATION RATE 103 ML/MIN (>89); MAGNESIUM 2.2 MG/DL (1.5-2.5); POTASSIUM 3.2 MEQ/L (3.5-5.1); SODIUM (NA) 138 MEQ/L (136-145); TOTAL BILIRUBIN ADULT 0.3 MG/DL (0.2-1.0)
[2016-06-29 08:21] VITALS: BP 104/58; PULSE 81; RESP 16; TEMP 99.4; O2SAT 99
[2016-06-29] MEDS: SODIUM CHLORIDE 0.9% FLUSH 10 ML FLUSH IV FLUSH SCH ×2 (08:34→21:00)
[2016-06-29] MEDS ORDERED: POTASSIUM CHLORIDE 20 MEQ CONTROLLED RELEASE TAB PO ONE (09:00)
--- NOTE | 2016-06-29 09:30 | HHI.PR ---
Subjective Remarks Follow-up for pyelonephritis. The patient is doing better today. She states that the pain is bearable today, and is trying not to use pain medicine. She locates the pain suprapubically, and a bit on the right flank. She had some nausea earlier, relieved with Zofran. No vomiting overnight. She wants to try to eat. She has been ambulating with no difficulties. She is asking about when she can go home. Objective Vitals Vital Signs Date Time Temp Pulse Resp B/P Pulse Ox O2 Delivery O2 Flow Rate FiO2 06/29/16 08:21 99.4 81 16 104/58 99 06/29/16 05:15 98.9 81 20 104/53 98 06/29/16 00:30 99.2 78 20 96/50 98 06/28/16 19:54 99.3 75 20 105/58 98 06/28/16 17:48 98.9 85 100/56 98 06/28/16 14:05 83 22 108/59 100 06/28/16 10:51 84 20 107/57 98 06/28/16 10:35 99.1 I/O 06/28/16 06/28/16 06/28/16 06/29/16 06/29/16 06/29/16 07:00 15:00 23:00 07:00 15:00 23:00 Intake Total 500 ml 812 ml Output Total 300 ml 205 ml Balance 200 ml 607 ml Intake Oral 200 ml 180 ml IV Total 300 ml 632 ml Output Urine Total 200 ml 205 ml Emesis 100 ml Bladder Scan Volume Amount 275 ml Result Diagram: 06/29/16 0615 06/29/16 0615 Objective Remarks GENERAL: Well-developed well-nourished. In no acute distress. SKIN: Warm and dry. No lesions noted. HEENT: Normocephalic. Pupils equal and round. Mucous membranes pink and moist. CARDIOVASCULAR: Regular rate and rhythm. No murmur appreciated. RESPIRATORY: No accessory muscle use. Clear to auscultation. Breath sounds equal bilaterally. GASTROINTESTINAL: Abdomen soft, mild suprapubic TTP, nondistended. Bowel sounds x4. Mild right CVA. MUSCULOSKELETAL: No obvious deformities. No clubbing or cyanosis. No edema. NEUROLOGICAL: Awake and alert. No focal neurological deficits. Moves upper and lower extremities spontaneously. Normal speech. PSYCHIATRIC: Appropriate mood and affect; insight and judgment normal. A/P Problem List: (1) Pyelonephritis ICD Code: N12 Status: Acute (2) Failure of outpatient treatment ICD Code: Z78.9 Status: Acute (3) Dehydration ICD Code: E86.0 Status: Acute (4) Hypokalemia ICD Code: E87.6 Status: Acute (5) Intractable nausea and vomiting ICD Code: R11.2 Status: Acute (6) Tobacco abuse ICD Code: Z72.0 Status: Chronic Assessment and Plan 26-year-old female with PMH Nephrolithiasis s/p Stent/Lithotripsy of present ER with complaints of right-sided flank pain, nausea and vomiting x2 days Pyelonephritis without outpatient treatment: Presented with worsening right- sided flank pain, nausea/vomiting. Previously presented to ER on 06/27/16, found to have UTI, prescribed Cipro. CT Abd/Pelvis at that time w/ no acute findings. U/a w/ evidence of worsening UTI, culture pending. Continue IV ceftriaxone. Pain control with oral [place] and IV morphine. Antiemetics as needed and diet as tolerated. Sepsis: Secondary to pyelonephritis as above. Tmax 101.9, tachycardia, WBC elevated. Continue IV antibiotics. Follow blood cultures. Hypokalemia: K+ 3.2 after replacement, given additional oral potassium. Magnesium within normal limits. Tobacco Abuse: Pt counseling. NicoDerm if needed. DVT Prophylaxis: SCD/Teds. Discharge Planning Patient is clinically improving, follow up culture results. Per Chris Jun 29, 2016 09:30 Per Chris Jun 29, 2016 09:30
[2016-06-29] MEDS: ACETAMINOPHEN/HYDROcodone 325 MG/10 MG TAB PO PRN (10:41)
[2016-06-29 12:12] VITALS: BP 96/57; PULSE 74; RESP 17; TEMP 97.6; O2SAT 98
[2016-06-29 16:07] VITALS: BP 97/56; PULSE 77; RESP 17; TEMP 99.1; O2SAT 99
[2016-06-30 06:01] LABS: AUTOMATED NEUTROPHIL # 6.3 TH/MM3 (1.8-7.7); BASOPHIL % 0.2 % (0.0-2.0); EOSINOPHIL # 0.1 TH/MM3 (0-0.4); EOSINOPHIL % 0.8 % (0.0-4.0); HEMATOCRIT 29.3 % (35.0-46.0); HEMO FLAGS DIFF FINAL; LYMPH % 13.6 % (9.0-44.0); LYMPHOCYTE # 1.1 TH/MM3 (1.0-4.8); MEAN CELL VOLUME 81.1 FL (80.0-100.0); MEAN CORPUSCULAR HEMOGLOBIN 28.8 PG (27.0-34.0); MEAN CORPUSCULAR HGB CONC 35.5 % (32.0-36.0); MONO % 8.6 % (0.0-8.0); NEUT % 76.8 % (16.0-70.0); PLATELET COUNT 211 TH/MM3 (150-450); RED BLOOD COUNT 3.61 MIL/MM3 (4.00-5.30); WHITE BLOOD COUNT 8.1 TH/MM3 (4.0-11.0)
[2016-06-30 06:03] LABS: BICARBONATE 21.5 MEQ/L (21.0-32.0)
[2016-06-30 06:08] LABS: POTASSIUM 3.6 MEQ/L (3.5-5.1)
[2016-06-30] MEDS: cefTRIAXone INJ 1,000 MG in SODIUM CHLORIDE 0.9% INJ 100 ML IV SCH (06:10)
[2016-06-30] MEDS: SODIUM CHLORIDE 0.9% FLUSH 10 ML FLUSH IV FLUSH SCH ×2 (07:58→21:00)
[2016-06-30 08:00] VITALS: BP 112/64; PULSE 94; RESP 18; TEMP 99.1; O2SAT 98
--- NOTE | 2016-06-30 09:48 | HHI.PR ---
Subjective Remarks Follow up for sepsis and pyelonephritis. The patient complains of diarrhea today. She had 4 episodes of loose stools overnight. She also complains of some crampy lower abdominal pain. However she is on the third day of her period and states it feels somewhat like period cramps. She states that prior to admission she did get antibiotics filled for UTI, but having intractable nausea and vomiting before she could try to take any. Objective Vitals Vital Signs Date Time Temp Pulse Resp B/P Pulse Ox O2 Delivery O2 Flow Rate FiO2 06/30/16 08:00 99.1 94 18 112/64 98 06/29/16 16:07 99.1 77 17 97/56 99 06/29/16 12:12 97.6 74 17 96/57 98 I/O 06/29/16 06/29/16 06/29/16 06/30/16 06/30/16 06/30/16 07:00 15:00 23:00 07:00 15:00 23:00 Intake Total 1200 ml Output Total 275 ml Balance 925 ml IV Total 1200 ml Output Urine Total 275 ml # Voids 1 Result Diagram: 06/30/16 0510 06/30/16 0510 Objective Remarks GENERAL: Well-developed well-nourished. In no acute distress. SKIN: Warm and dry. No lesions noted. HEENT: Normocephalic. Pupils equal and round. Mucous membranes pink and moist. CARDIOVASCULAR: Regular rate and rhythm. No murmur appreciated. RESPIRATORY: No accessory muscle use. Clear to auscultation. Breath sounds equal bilaterally. GASTROINTESTINAL: Abdomen soft, mild suprapubic TTP, nondistended. Bowel sounds x4. MUSCULOSKELETAL: No obvious deformities. No clubbing or cyanosis. No edema. NEUROLOGICAL: Awake and alert. No focal neurological deficits. Moves upper and lower extremities spontaneously. Normal speech. PSYCHIATRIC: Appropriate mood and affect; insight and judgment normal. A/P Problem List: (1) Pyelonephritis ICD Code: N12 Status: Acute (2) Failure of outpatient treatment ICD Code: Z78.9 Status: Acute (3) Dehydration ICD Code: E86.0 Status: Acute (4) Hypokalemia ICD Code: E87.6 Status: Acute (5) Intractable nausea and vomiting ICD Code: R11.2 Status: Acute (6) Tobacco abuse ICD Code: Z72.0 Status: Chronic Assessment and Plan 26-year-old female with PMH Nephrolithiasis s/p Stent/Lithotripsy of present ER with complaints of right-sided flank pain, nausea and vomiting x2 days Pyelonephritis: Presented with worsening right-sided flank pain, nausea/ vomiting. CT Abd/Pelvis 06/27 w/ no acute findings. U/a w/ evidence of worsening UTI since 06/27. Urine culture with no growth, possibly sterile due to previous antibiotic administration. Continue IV ceftriaxone. Pain control with oral [place] and IV morphine. Antiemetics as needed and diet as tolerated. Significantly clinically improved, faster than expected. Sepsis: Secondary to pyelonephritis as above. Tmax 101.9, tachycardia, WBC elevated. WBC decreased normal limits. No further fevers. Blood cultures 03/13 growing gram-positive cocci, contaminant? Continue IV antibiotics. Follow blood cultures. Hypokalemia: K+ improved to 3.6 after replacement on labs today. Magnesium within normal limits. Tobacco Abuse: Pt counseling. NicoDerm if needed. Diarrhea: Rule out C. difficile. Start Lactinex. DVT Prophylaxis: SCD/Teds. Written by Per Chris, acting as scribe for Dr. Morales on 06/30/16 at 09:48. This note was transcribed by loki CARBALLO. I, Dr. Chaya Morales personally performed the history, physical exam, and medical decision making; and confirmed the accuracy of the information in the transcribed note. Authenticated by Dr. Chaya Morales on 06/30/16 at 09:48. Discharge Planning Patient is clinically improving, follow up culture results. Per Chris Jun 30, 2016 09:48 Chaya Morales MD Jun 30, 2016 16:58
[2016-06-30] MEDS: ONDANSETRON HCL 4 MG/2 ML VIAL IVP PRN (11:09)
[2016-06-30] MEDS: LACTOBACILLUS ACIDOPHILUS TAB PO SCH ×2 (11:51→17:45)
[2016-06-30] MEDS: ACETAMINOPHEN/HYDROcodone 325 MG/5 MG TAB PO PRN ×2 (11:51→23:13)
[2016-06-30 12:00] VITALS: BP 103/50; PULSE 62; RESP 18; TEMP 98.8; O2SAT 98
[2016-06-30 16:10] VITALS: BP 109/63; PULSE 60; RESP 18; TEMP 98.5; O2SAT 98
[2016-06-30 20:13] VITALS: BP 101/58; PULSE 87; RESP 18; TEMP 100.4; O2SAT 99
[2016-07-01 00:33] VITALS: BP 91/50; PULSE 75; RESP 18; TEMP 98.6; O2SAT 98
[2016-07-01 04:49] VITALS: BP 101/59; PULSE 80; RESP 18; TEMP 98.9; O2SAT 100
[2016-07-01] MEDS: cefTRIAXone INJ 1,000 MG in SODIUM CHLORIDE 0.9% INJ 100 ML IV SCH (05:44)
[2016-07-01 08:14] VITALS: BP 114/65; PULSE 64; RESP 18; TEMP 98.4; O2SAT 99
--- NOTE | 2016-07-01 08:16 | HHI.PR ---
Subjective Remarks Follow up for sepsis with pyelonephritis. The patient reports feeling slightly better today. She did have some nausea/vomiting this morning after taking pain medication. No further diarrhea. Denies any abdominal pain except for some lower abdominal menstrual cramps. Denies any fevers/chills. Objective Vitals Vital Signs Date Time Temp Pulse Resp B/P Pulse Ox O2 Delivery O2 Flow Rate FiO2 07/01/16 06:43 20 07/01/16 04:49 98.9 80 18 101/59 100 07/01/16 00:33 98.6 75 18 91/50 98 06/30/16 20:13 100.4 87 18 101/58 99 06/30/16 16:10 98.5 60 18 109/63 98 06/30/16 12:00 98.8 62 18 103/50 98 I/O 06/30/16 06/30/16 06/30/16 07/01/16 07/01/16 07/01/16 07:00 15:00 23:00 07:00 15:00 23:00 Intake Total 360 ml 900 ml Output Total 475 ml 600 ml Balance -115 ml 300 ml Intake Oral 360 ml IV Total 900 ml Output Urine Total 475 ml 600 ml Result Diagram: 06/30/1610 06/30/16 0510 Objective Remarks GENERAL: Well-nourished, well-developed young female patient in [facility]. SKIN: Warm and dry. No rash. HEENT: Normocephalic. Atraumatic.Pupils equal and round. Mucous membranes pink and moist. NECK: Supple. Trachea midline. CARDIOVASCULAR: Regular rate and rhythm. S1, S2 noted. No murmur appreciated. RESPIRATORY: No accessory muscle use. Clear to auscultation. Breath sounds equal bilaterally. GASTROINTESTINAL: Abdomen soft, non-tender, nondistended. Normoactive bowel sounds x4. MUSCULOSKELETAL: No obvious deformities. Extremities without clubbing, cyanosis , or edema. NEUROLOGICAL: Awake and alert. No obvious cranial nerve deficits. Motor grossly within normal limits. Normal speech. PSYCHIATRIC: Appropriate mood and affect; insight and judgment normal. Medications and IVs Current Medications Medications (Trade) Dose Ordered Sig/Claire Route Start Time Stop Time Status Last Admin Ceftriaxone Sodium 1000 mg/ Sodium Chloride 100 ml @ 200 mls/hr Q24H IV 06/29/16 06:00 07/01/16 05:44 (NS 1000 ml Inj) 1,000 ml @ 100 mls/hr Q10H IV 06/28/16 03:39 07/01/16 08:31 (NS Flush) 2 ml UNSCH PRN IV FLUSH 06/28/16 03:45 06/28/16 14:33 (NS Flush) 2 ml BID IV FLUSH 06/28/16 09:00 07/01/16 08:44 (Zofran Inj) 4 mg Q6H PRN IVP 06/28/16 03:45 07/01/16 08:32 (Dulcolax Supp) 10 mg DAILY PRN RECTAL 06/28/16 03:45 (Tylenol) 650 mg Q6H PRN PO 06/28/16 03:45 06/28/16 04:45 ([place] 5-325 Mg) 1 tab Q4H PRN PO 06/28/16 03:45 06/30/16 23:13 (Compazine Inj) 10 mg Q6H PRN IV PUSH 06/28/16 03:45 (Morphine Inj) 4 mg Q3H PRN IV 06/28/16 18:45 ([place] 10-325 Mg) 1 tab Q4H PRN PO 06/28/16 18:15 06/29/16 10:41 (Lactinex) 1 tab TID PO 06/30/16 13:00 07/01/16 08:31 A/P Problem List: (1) Pyelonephritis ICD Code: N12 Status: Acute (2) Failure of outpatient treatment ICD Code: Z78.9 Status: Acute (3) Dehydration ICD Code: E86.0 Status: Acute (4) Hypokalemia ICD Code: E87.6 Status: Acute (5) Intractable nausea and vomiting ICD Code: R11.2 Status: Acute (6) Tobacco abuse ICD Code: Z72.0 Status: Chronic Assessment and Plan 26-year-old female with PMH Nephrolithiasis s/p Stent/Lithotripsy of present ER with complaints of right-sided flank pain, nausea and vomiting x2 days Pyelonephritis: Presented with worsening right-sided flank pain, nausea/ vomiting. CT Abd/Pelvis 06/27 w/ no acute findings. U/a w/ evidence of worsening UTI since 06/27. Urine culture with no growth, possibly sterile due to previous antibiotic administration. Continue IV ceftriaxone. Pain control with oral [place] and IV morphine. Antiemetics as needed and diet as tolerated. Significantly clinically improved, faster than expected. Sepsis: Secondary to pyelonephritis as above. Tmax 101.9, tachycardia, WBC elevated. WBC decreased normal limits. No further fevers. Blood cultures 1/4 growing gram-positive cocci, contaminant? Continue IV antibiotics. Repeat blood cultures. Consult ID. Hypokalemia: K+ improved to 3.6 after replacement. Magnesium within normal limits. Tobacco Abuse: Pt counseling. NicoDerm if needed. Diarrhea: Rule out C. difficile. Start Lactinex. Diarrhea resolved. DVT Prophylaxis: SCD/Teds. Written by Karina Perez, acting as scribe for Dr. Morales on 07/01/16 at 08:54 This note was transcribed by scribDali CARBALLO. I, Dr. Chaya Morales personally performed the history, physical exam, and medical decision making; and confirmed the accuracy of the information in the transcribed note. Authenticated by Dr. Chaya Morales on 07/01/16 at 08:54 Karina Perez PA-C Jul 01, 2016 08:16 Chaya Morales MD Jul 01, 2016 18:39
[2016-07-01] MEDS: SODIUM CHLOR 0.9% 1000 ML INJ 1,000 ML IV SCH ×3 (08:31→19:55)
[2016-07-01] MEDS: LACTOBACILLUS ACIDOPHILUS TAB PO SCH ×3 (08:31→17:43)
[2016-07-01] MEDS: ONDANSETRON HCL 4 MG/2 ML VIAL IVP PRN ×2 (08:32→16:12)
[2016-07-01] MEDS: SODIUM CHLORIDE 0.9% FLUSH 10 ML FLUSH IV FLUSH SCH ×2 (08:44→19:56)
[2016-07-01 11:52] VITALS: BP 99/63; PULSE 69; RESP 20; TEMP 98.6; O2SAT 98
[2016-07-01] MEDS ORDERED: IBUPROFEN 400 MG TAB PO PRN (16:00)
[2016-07-01] MEDS ORDERED: IBUPROFEN 600 MG TAB PO ONE (16:00)
[2016-07-01] MEDS: ACETAMINOPHEN/HYDROcodone 325 MG/10 MG TAB PO PRN (16:11)
[2016-07-01 16:45] VITALS: BP 110/76; PULSE 60; RESP 18; TEMP 99.6; O2SAT 99
--- NOTE | 2016-07-01 18:55 | HHI.IDPN ---
Note Infectious Disease Note Patient seen and examined. Full consult dictated. Impression. The micrococcus in the blood could be contaminant. Pyelonephritis improving. Recommend: I agree with repeat blood culture. If the blood culture is negative tomorrow she can be discharged on PO Augmentin 500mg tid x 10 days to complete treatment for the pyelonephritis. Follow the blood cultures until final. Rohan Hitchcock MD Jul 01, 2016 18:55
[2016-07-01 20:00] VITALS: BP 106/64; PULSE 56; RESP 17; TEMP 97.3; O2SAT 98
[2016-07-02] VITALS: BP 107/61; PULSE 57; RESP 18; TEMP 96.7; O2SAT 100
[2016-07-02 04:00] VITALS: BP 96/55; PULSE 61; RESP 16; TEMP 97.7; O2SAT 97
[2016-07-02] MEDS: cefTRIAXone INJ 1,000 MG in SODIUM CHLORIDE 0.9% INJ 100 ML IV SCH (05:48)
[2016-07-02] MEDS: SODIUM CHLOR 0.9% 1000 ML INJ 1,000 ML IV SCH (05:49)
[2016-07-02] MEDS: ONDANSETRON HCL 4 MG/2 ML VIAL IVP PRN (07:05)
[2016-07-02 07:32] LABS: AUTOMATED NEUTROPHIL # 3.1 TH/MM3 (1.8-7.7); BASOPHIL % 0.6 % (0.0-2.0); EOSINOPHIL # 0.1 TH/MM3 (0-0.4); EOSINOPHIL % 1.5 % (0.0-4.0); HEMATOCRIT 30.6 % (35.0-46.0); HEMO FLAGS DIFF FINAL; LYMPH % 21.9 % (9.0-44.0); LYMPHOCYTE # 1.1 TH/MM3 (1.0-4.8); MEAN CORPUSCULAR HEMOGLOBIN 27.3 PG (27.0-34.0); MEAN CORPUSCULAR HGB CONC 33.7 % (32.0-36.0); MONO % 14.2 % (0.0-8.0); NEUT % 61.8 % (16.0-70.0); PLATELET COUNT 260 TH/MM3 (150-450); RED BLOOD COUNT 3.78 MIL/MM3 (4.00-5.30); WHITE BLOOD COUNT 5.1 TH/MM3 (4.0-11.0)
--- NOTE | 2016-07-02 07:52 | MB ---
cc: MAIKOL MOSES MD DATE OF CONSULTATION 07/01/[address] Perez REASON FOR CONSULTATION Monitor for blood cultures positive with Micrococcus. Patient with sepsis. Advise on antibiotics for discharge. HISTORY OF PRESENT ILLNESS This is a 26-year-old white female who presented to the emergency department initially on June 27 with right-sided flank pain and also right lower back pain. The patient was evaluated and urinalysis was obtained and it showed innumerable white cells. Urine culture was sent and came back with mixed gram-positive flavia. The patient was put on oral Ciprofloxacin and was discharged home. White count at that time was 7.4. The patient went home and she felt worse. She noted that she developed nausea and vomiting and also sweats. The pain in the right flank persisted. She also had intermittent fever and chills. She came to emergency department and on evaluation of her temperature was 100 degrees and the white blood cell count was increased at 17.7. A urinalysis was repeated and it showed again innumerable white cells and a large amount of leukocyte esterase and again the culture came back with mixed gram-positive cocci. Blood cultures were taken and 1/4 bottles came back with Micrococcus species. The patient was put on IV ceftriaxone on admission. Her white blood cell count improved and is now down to 8.1. She feels better, although she still gets some nausea when she tries to eat. She also continues to have the right flank pain although she thinks it is better. The patient notes that she also had her menstrual period, and she has no burning on urination. Her maximum temperature was 101.9 degrees on 06/28. Repeat blood culture has been ordered. The patient feels like she is well enough to go home. PAST MEDICAL HISTORY 1. Kidney stones 2. History of stent and lithotripsy approximately two years ago. 3. ALLERGIES NO KNOWN DRUG ALLERGIES. MEDICATIONS 1. Ceftriaxone 2. Lactinex 3. Ibuprofen 4. Vernon 10 p.r.n. 5. Tylenol p.r.n. SOCIAL HISTORY Positive marijuana use. Positive tobacco use. The patient smokes approximately six cigarettes a day. No alcohol. No illicit drugs. FAMILY HISTORY Noncontributory REVIEW OF SYSTEMS Significant for right flank pain and nausea, otherwise negative on 10-point review. PHYSICAL EXAMINATION This is a pleasant well-developed female in no acute distress. She is awake and alert and oriented. VITAL SIGNS: Include temperature of 98.6, BP 99/63, respirations 20, heart rate 69. HEENT: The head is atraumatic. Extraocular movements grossly intact, pupils reactive to light without icterus. Oropharynx has no lesions. Moist mucosa. NECK: Supple. No adenopathy. LUNGS: Clear. HEART: Regular rate rhythm without murmurs, rubs or gallops. ABDOMEN: Bowel sounds present, soft, right flank tenderness on palpation. No palpable mass. RECTAL: Not performed. EXTREMITIES: No clubbing, cyanosis or edema. SKIN: No rash. NEUROLOGIC: Nonfocal. The patient calm and cooperative. LABORATORY DATA WBC 8.1, platelet count 211, hemoglobin 10.4, 76% neutrophils, creatinine 0.53, BUN 5, sodium 140. IMPRESSION 1. Pyelonephritis 2. Bacteremia due to Micrococcus species. 3. Leukocytosis improved. The patient appears to be clinically improving with treatment for the pyelonephritis. I think the Micrococcus in the blood is likely contaminant and not true infection. However, it is prudent to follow the blood cultures and make sure it is not a persistent bacteremia. I feel confident that it is not clinically significant, however, I recommend continuing the patient with IV antibiotics overnight and if the blood culture tomorrow is negative, she can be discharged on oral Augmentin to complete a 10-day course. Thank you for this consultation. Further recommendations will follow if the patient remains in the hospital. Maikol Moses MD FD/[facility] /6:42 PM /7:41 AM
[2016-07-02] MEDS ORDERED: AUGM500T7 PO (07:53)
[2016-07-02] MEDS ORDERED: LACT PO (07:53)
[2016-07-02] MEDS ORDERED: PROM25TA5 PO (07:53)
[2016-07-02 07:54] LABS: BICARBONATE 26.2 MEQ/L (21.0-32.0); POTASSIUM 3.4 MEQ/L (3.5-5.1)
[2016-07-02] MEDS: SODIUM CHLORIDE 0.9% FLUSH 10 ML FLUSH IV FLUSH SCH (07:54)
--- NOTE | 2016-07-02 07:54 | HHI.DS ---
Discharge Summary Admission Date Jun 28, 2016 at 03:35 Discharge Date: Jul 02, 2016 Admitting Diagnosis pyelonephritis. Intractable vomiting. Failure of outpatient treatm (1) Pyelonephritis ICD Code: N12 Diagnosis: Principal (2) Failure of outpatient treatment ICD Code: Z78.9 Diagnosis: Principal (3) Dehydration ICD Code: E86.0 Diagnosis: Principal (4) Hypokalemia ICD Code: E87.6 Diagnosis: Principal (5) Intractable nausea and vomiting ICD Code: R11.2 (6) Tobacco abuse ICD Code: Z72.0 Diagnosis: Principal Procedures none Brief History - From Admission This is a 26-year-old female with PMH Nephrolithiasis s/p Stent/Lithotripsy of present ER with complaints of right-sided flank pain, nausea and vomiting x2 days. Seen in ER on 06/26/16 for c/o sore throat, diagnosed w/ Acute Pharyngitis and d/c'd w/ PCN 500mg po q6h. Presented to ER again on 06/27/16 w/ c/o right-sided flank pain and nausea/vomiting, found to have UTI and d/c'd w/ Cipro 250mg po bid x3 days. Reports ongoing nausea/vomiting, unable to take medications, also notes subjective fever/chills at home. On arrival, Temp 100.0. BP 116/81, HR 88, O2 sat 99% on RA. WBC 17.7, previously 7.4 on . K+ 3.1. GFR 77. U/a w/ worsening UTI. CT Abd/Pelvis 06/27/16 w/ minimal free fluid in cul-de-sac, no obstructive uropathy. S/p Blood/Urine Cultures, Rocephin IV in ER. CBC/BMP: 07/02/16 0633 06/30/16 0510 Significant Findings Laboratory Tests Test 06/30/16 07/02/16 05:10 06:33 Red Blood Count 3.61 MIL/MM3 3.78 MIL/MM3 (4.00-5.30) (4.00-5.30) Hemoglobin 10.4 GM/DL 10.3 GM/DL (11.6-15.3) (11.6-15.3) Hematocrit 29.3 % 30.6 % (35.0-46.0) (35.0-46.0) Neutrophils (%) (Auto) 76.8 % (16.0-70.0) Monocytes (%) (Auto) 8.6 % (0.0-8.0) 14.2 % (0.0-8.0) Chloride Level 109 MEQ/L (98-107) Blood Urea Nitrogen 5 MG/DL (7-18) Calcium Level 7.9 MG/DL (8.5-10.1) PE at Discharge GENERAL: Well-nourished, well-developed young female patient in [facility]. SKIN: Warm and dry. No rash. HEENT: Normocephalic. Atraumatic.Pupils equal and round. Mucous membranes pink and moist. NECK: Supple. Trachea midline. CARDIOVASCULAR: Regular rate and rhythm. S1, S2 noted. No murmur appreciated. RESPIRATORY: No accessory muscle use. Clear to auscultation. Breath sounds equal bilaterally. GASTROINTESTINAL: Abdomen soft, non-tender, nondistended. Normoactive bowel sounds x4. MUSCULOSKELETAL: No obvious deformities. Extremities without clubbing, cyanosis , or edema. NEUROLOGICAL: Awake and alert. No obvious cranial nerve deficits. Motor grossly within normal limits. Normal speech. PSYCHIATRIC: Appropriate mood and affect; insight and judgment normal. Pt update on day of discharge feels much better today. Had abdominal cramps yesterday, says her menstrual cycle is almost over and she doesn't have any pain now. Fels nauseatd in the morning, but did not vomit. Says she tolerates food. Diarrhea subsided. No fevers or chills. Hospital Course 26-year-old female with PMH Nephrolithiasis s/p Stent/Lithotripsy of present ER with complaints of right-sided flank pain, nausea and vomiting x2 days Pyelonephritis: Presented with worsening right-sided flank pain, nausea/ vomiting. CT Abd/Pelvis 06/27 w/ no acute findings. U/a w/ evidence of worsening UTI since 06/27. Urine culture with no growth, possibly sterile due to previous antibiotic administration. Continue IV ceftriaxone. Pain control with oral Hull and IV morphine. Antiemetics as needed and diet as tolerated. Significantly clinically improved, faster than expected. Sepsis: Secondary to pyelonephritis as above. Tmax 101.9, tachycardia, WBC elevated. WBC decreased normal limits. No further fevers. Blood cultures 1/4 growing gram-positive cocci, contaminant? Continue IV antibiotics. Repeat blood cultures. Consult ID. Hypokalemia: K+ improved to 3.6 after replacement. Magnesium within normal limits. Tobacco Abuse: Pt counseling. NicoDerm if needed. Diarrhea: Rule out C. difficile. Start Lactinex. Diarrhea resolved. DVT Prophylaxis: SCD/Teds. improved. Feels comfortable to go home. Repeat blood cx NTD. Patient to follow up as OP with PCP and consultants. Pt Condition on Discharge: Stable Discharge Disposition: Discharge Home Discharge Time: > 30 minutes Discharge Instructions DIET: Follow Instructions for: As Tolerated, No Restrictions Activities you can perform: Regular-No Restrictions Follow up Referrals: PCP Follow-up - 07/07/16 with Flavia Gaming MD New Medications: Amoxicillin-Clavulanate (Augmentin) 500-125 mg Tab 500 MG PO Q8H Infection #30 Ref 0 TAB Promethazine (Phenergan) 25 Mg Tab 25 MG PO Q8HR PRN Nausea/Vomiting #15 Ref 0 TAB Lactobacillus Acidophilus (Acidophilus/l-Sporogenes) 1 Tab Tab 1 TAB PO DAILY diarrhea/ probiotic #30 TAB Continued Medications: Acetaminophen (Acetaminophen Extra Strength) 500 Mg Tab 500 MG PO Q6H PRN PAIN SCALE 1 TO 4 #20 Ref 0 TAB Discontinued Medications: Ciprofloxacin (Cipro) 250 Mg Tab 250 MG PO BID Infection Days 3 Ref 0 TAB Penicillin V Potassium (Penicillin V Potassium) 500 Mg Tab 500 MG PO Q6H Infection #28 Ref 0 TAB Chaya Morales MD Jul 02, 2016 07:54
[2016-07-02 08:00] VITALS: BP 115/59; PULSE 60; RESP 16; TEMP 98.6; O2SAT 100
[2016-07-02] MEDS: LACTOBACILLUS ACIDOPHILUS TAB PO SCH ×2 (09:55→12:42)
[2016-07-02] MEDS ORDERED: POTASSIUM CHLORIDE 10 MEQ CONTROLLED RELEASE TAB PO ONE (12:00)
== END 2016-07-02 13:14 | disposition home or self-care (01) | DRG 872 ==
LOC: NEPC 01:22 → NEDA 03:35 → NEPHCDU 05:05 → HOCB 07-01 15:20
PROVIDERS: ADMIT Hospitalist; ATTEND Hospitalist
DX: A41.9 Sepsis, unspecified organism (principal); N12 Tubulo-interstitial nephritis, not specified as acute or chronic; E86.0 Dehydration; E87.6 Hypokalemia; F17.210 Nicotine dependence, cigarettes, uncomplicated; F12.90 Cannabis use, unspecified, uncomplicated; R19.7 Diarrhea, unspecified
CPT/HCPCS: 76937; 80048; 80053; 81001; 83690; 83735; 84702; 85025; 85610; 85730; 87040; 87086; 87205; 96365; 96375; C9113; J0696; J2270; J2405; J3480; J7030